=== PATIENT | male | born 1955 ===

== ENCOUNTER 2022-11-08 14:42 | Outpatient (CLI) | payer MEDICARE, BC, SELFPAY | END 2022-11-08 14:43 | disposition home or self-care (01) | LOC: AMB 11-30 16:40 | PROVIDERS: Visit Provider Family Medicine | DX: S09.93XA Unspecified injury of face, initial encounter (principal); S29.9XXA Unspecified injury of thorax, initial encounter; S59.901A Unspecified injury of right elbow, initial encounter; V43.52XA Car driver injured in collision with other type car in traffic accident, initial encounter; Y92.410 Unspecified street and highway as the place of occurrence of the external cause | CPT/HCPCS: A0425; A0427 ==